=== PATIENT | female | born 1995 | race Hispanic/Latino ===

== ENCOUNTER 2017-07-03 05:31 | Emergency (ER) | payer SELFPAY ==
[2017-07-03] MEDS ORDERED: Ketorolac Tromethamine 60 MG/2 ML VIAL ONE (06:14)
[2017-07-03 07:18] LABS: Bilirubin Negative (Negative); Blood, Urine Large (Negative); Glucose, Urine (Dipstick) Negative (Negative); Ketone, Urine Negative (Negative); Nitrite Negative (Negative); Protein, Urine (Dipstick) Negative (Neg-Trace); Urobilinogen 0.2 mg/dL (0.2-1.0)
[2017-07-03 07:22] LABS: Bacteria/HPF None Seen HPF (None Seen); Hyaline Casts/LPF 0-3 HYALINE CAST LPF (0-3 Hyaline); RBC/HPF GREATER THAN 50-TNTC HPF (0-3); Squamous Epithelial 0-3 HPF (0-3)
--- NOTE | 2017-07-03 07:49 | ULT ---
PRELIMINARY REPORT/[facility]/EMERGENCY AFTER HOURS PROCEDURE: EXAM: US Pelvis Complete CLINICAL HISTORY: 21 years old, female; Pain; Pelvic pain; Patient HX: Pelvic pain, more to rlq, nausea TECHNIQUE: Real-time pelvic ultrasound (complete) with image documentation. COMPARISON: No relevant prior studies available. FINDINGS: Uterus/cervix: Uterus measures 8.5 x 3.8 x 4.7 cm. Endometrial thickness measures approximately 7 mm. No myometrial mass. Right ovary: The RIGHT ovary measures 3.8 x 2.0 x 2.7 cm. Normal blood flow. Left ovary: The LEFT ovary measures 3.3 x 1.9 x 2.7 cm. Normal blood flow. Free fluid: No free fluid. IMPRESSION: Unremarkable pelvic ultrasound. EXAM: US Duplex Arterial/Venous of the Pelvis, Complete EXAM DATE/TIME: Exam ordered 07/03/2017 6:20 AM CLINICAL HISTORY: 21 years old, female; Pain; Pelvic pain; Patient HX: Pelvic pain, more to rlq, nausea TECHNIQUE: Real-time duplex ultrasound scan of the arterial and venous flow of the pelvis with color Doppler palak w and spectral waveform analysis. COMPARISON: No relevant prior studies available. FINDINGS: Right ovary: RIGHT ovarian artery peak systolic velocity measures approximately 38 mL per second. Nor mal venous waveform. No torsion. Left ovary: LEFT ovarian artery peak systolic velocity measures approximately 40 mL per second. Normal venous waveform. No torsion. IMPRESSION: No acute findings. Thank you for allowing us to participate in the care of your patient. Dictated and Authenticated by: Oskar Griggs MD 07/03/2017 7:02 AM Central Time ([place] & [place]) FINAL REPORT PELVIC SONOGRAM TRANSABDOMINAL IMAGING WITH DUPLEX EVALUATION: 07/03/2017 Performed on an emergency basis at 0621 hours. HISTORY: Pelvic pain. FINDINGS/IMPRESSION: The findings agree with the preliminary report by Dr. Griggs from [facility]. Uterus is retr overted without abnormality. Good color and spectral Doppler flow were present within each ovary. Code QA. POS: [facility]
== END 2017-07-03 07:07 | disposition home or self-care (01) ==
LOC: ERS 05:31
DX: N94.6 Dysmenorrhea, unspecified (principal); R10.12 Left upper quadrant pain; R10.11 Right upper quadrant pain
CPT/HCPCS: 76856; 81003; 81015; 81025; 93976; 96372; J1885

== ENCOUNTER 2018-04-21 07:48 | Emergency (ER) | payer SELFPAY | END 2018-04-21 08:10 | disposition home or self-care (01) | LOC: ERS 07:48 | DX: T16.2XXA Foreign body in left ear, initial encounter (principal) | CPT/HCPCS: 99282 ==

== ENCOUNTER 2020-10-14 09:34 | Outpatient (CLI) | payer OTHER | END 2020-10-14 09:35 | disposition home or self-care (01) | LOC: BICULT 09:34 | PROVIDERS: ATTEND Family Medicine | DX: Z34.02 Encounter for supervision of normal first pregnancy, second trimester (principal) | CPT/HCPCS: 76805 ==